=== PATIENT | female | born 1975 | race Hispanic/Latino ===

== ENCOUNTER 2025-06-12 16:46 | Emergency (ER) | payer OTHER ==
[2025-06-12 17:28] LABS: Absolute Lymphocytes (CBC) 2.2 K/uL (0.7-4.9); Hematocrit 31.1 % (36.0-45.0); Hemoglobin 9.7 g/dL (12.0-15.0); MCH 24.4 pg (27.0-35.0); MCHC 31.4 g/dL (32.0-36.0); MCV 77.8 fL (80-100); MPV 7.7 fL (7.6-11.3); Nucleated RBC Absolute Count 0.0 (0-0); Nucleated Red Blood Cells % 0.1 % (0-0); RBC Red Blood Cell Count 4.00 M/uL (3.86-4.86); White Blood Count 6.90 thou/uL (4.3-10.9)
[2025-06-12] MEDS ORDERED: NA CHLORIDE 0.9% 1,000 ML ONE (17:29)
[2025-06-12 17:46] LABS: Urine Culture Reflex Order NOT NEEDED; Urine Microscopic Reflex YN ORDER UMIC; Urine Yeast (Budding) Trace /HPF (None Seen)
[2025-06-12 17:50] LABS: ALT/SGPT 22 U/L (13-56); AST/SGOT 16 U/L (15-37); Albumin 3.3 g/dL (3.4-5.0); Albumin/Globulin Ratio 0.7 (1.1-1.8); Alkaline Phosphatase 95 U/L (45-117); Anion Gap 10.6 mEq/L (5.0-15.0); BUN Blood Urea Nitrogen 13 mg/dL (7-18); Globulin 4.8 g/dL (2.3-3.5); Glucose Level 109 mg/dL (74-106); HCG, Quantitative < 1 mIU/mL (1-3); Lipase 42 U/L (13-75); Potassium 3.6 mEq/L (3.5-5.1)
[2025-06-12 18:02] LABS: Blood Morphology Comment NOTED (NOT SEEN); White Blood Cell Scan OK (OK)
[2025-06-12 18:03] LABS: Anisocytosis 1+; Macrocytosis SLIGHT; Microcytosis SLIGHT; Ovalocytes 1+; Stomatocytes 1+
--- NOTE | 2025-06-12 18:32 | RAD REPORT ---
EXAMINATION: CT ABDOMEN AND PELVIS WITH CONTRAST CLINICAL INDICATION: Abdominal pain TECHNIQUE: CT abdomen and pelvis was performed, after the administration of 100 cc Isovue-300.. Sagit ynes and coronal reconstructions were obtained. One or more of the following dose reduction techniques were used: Automated exposure control, adjustment of the mA and kV according to patient si ze, and iterative reconstruction. Unless otherwise specified, incidental findings do not require dedicated imaging follow-up. [id number]. Oral contrast was not given which limits evaluation of bowel and appendix. COMPARISON: .None FINDINGS: Liver, spleen, pancreas, left adrenal and kidneys appear unremarkable 12 mm right adrenal nodule Hounsfield unit 48 Cholecystectomy. Post surgical changes involve the stomach. Postsurgical changes involve small bowel. Mild dilatation of a loop may represent a focal ileus. 1.8 cm fatty structure abuts the cecum. Diffuse edema within the anterior subcutaneous tissues of the pelvis. No adnexal mass seen. No evidence of diverticulitis. Mild anterior subluxation L5 on S1. Spondylolysis L5 : IMPRESSION: 1.8 cm fatty structure adjacent to the cecum may represent epiploic appendicitis. It may be chronic. Edema within the anterior subcutaneous tissues of the pelvis may be the sequela of prior surgery or i ndicate inflammation. 12 mm right adrenal nodule probably an adenoma. It is recommended 1 year follow up adrenal washout CT . If stable then no further follow-up imaging r
--- NOTE | 2025-06-12 19:14 | ER ---
Nurse's Notes [facility] Name: Evelin Phelps Age: 50 yrs Sex: Female : 1975 Arrival Date: 06/12/2025 Time: 16:46 Bed 16 Private MD: Diagnosis: Abdominal pain, Generalized;Epiploic appendagitis Presentation: 06/12 17:02 Chief complaint: Patient states: reports abdominal cramping for 18 months. [place] [facility] [place] and last period was 1.5 months ago. Coronavirus screen: Vaccine status: Patient reports receiving the 2nd dose of the covid vaccine. Ebola Screen: No symptoms or risks identified at this time. Initial Sepsis Screen: Does the patient meet any 2 criteria? No. Patient's initial sepsis screen is negative. Does the patient have a suspected source of infection? No. Patient's initial sepsis screen is negative. Risk Assessment: Do you want to hurt yourself or someone else? Patient reports no desire to harm self or others. Onset of symptoms is unknown. 17:02 Method Of Arrival: Ambulatory [facility] 17:02 Acuity: YONATHAN 3 me1 Triage Assessment: 17:05 General: Appears in no apparent distress. Behavior is calm, cooperative, appropriate me1 for age. Pain: Complains of pain in abdomen Pain does not radiate. Pain currently is 4 out of 10 on a pain scale. Quality of pain is described as crampy, Pain began gradually, Is continuous. EENT: No signs and/or symptoms were reported regarding the EENT system. Neuro: Level of Consciousness is awake, alert, obeys commands, Oriented to person, place, time, situation, Appropriate for age. Cardiovascular: Patient's skin is warm and dry. Respiratory: Airway is patent Respiratory effort is even, unlabored, Respiratory pattern is regular, symmetrical. GI: Reports cramping. : No signs and/or symptoms were reported regarding the genitourinary system. Derm: Skin is intact, is healthy with good turgor, Skin is normal. Musculoskeletal: Circulation, motion, and sensation intact. Range of motion: intact in all extremities. 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 Unsure of exact date [facility] Historical: - Allergies: 17:05 steroids; me1 - PMHx: 17:05 Diabetes mellitus; Hypertensive disorder; Obesity; me1 - PSHx: 17:05 gastric bypass; hernia repair; surgery to remove skin after weightloss; me1 - Immunization history:: Adult Immunizations up to date. - Infectious Disease History:: Denies. - Social history:: Smoking status: Patient denies any tobacco usage or history of. Screenin:09 [facility] ED Fall Risk Assessment (Adult) History of falling in the last 3 months, me1 including since admission No falls in past 3 months (0 pts) Confusion or Disorientation No (0 pts) Intoxicated or Sedated No (0 pts) Impaired Gait No (0 pts) Mobility Assist Device Used No (0 pt) Altered Elimination No (0 pt) Score/Fall Risk Level 0 - 2 = Low Risk Maintained a safe environment, Provided non-skid footwear, Hourly rounding (assess needs \T\ fall precautionary measures) done. Abuse screen: Denies threats or abuse. Nutritional screening: No deficits noted. Tuberculosis screening: No symptoms or risk factors identified. Assessment: 17:09 General: See triage assessment. me1 19:17 GI: Bowel sounds present X 4 quads. Abd is soft and non tender X 4 quads. me1 Vital Signs: 17:02 BP 128 / 86; Pulse 82; Resp 17; Temp 98.2; Pulse Ox 98% ; Weight 81.19 kg; Height 5 ft. me1 3 in. ; Pain 4/10; 18:00 BP 111 / 56; Pulse 71; Resp 16; Pulse Ox 98% ; me1 17:02 Body Mass Index 31.71 (81.19 kg, 160.02 cm) me1 17:02 Pain Scale: Adult pa1 ED Course: 16:50 Patient arrived in ED. im 16:50 Kerrie Juan FNP-C is PHCP. kb 16:50 Jose A Cazares DO is Attending Physician. kb 16:58 Fely Reed, NADIA is Primary Nurse. me1 17:05 Triage completed. me1 17:05 Arm band placed on Patient placed in an exam room. me1 17:09 Patient has correct armband on for positive identification. Bed in low position. Call pa1 light in reach. Side rails up X2. Provided Education on: POC. Verbalized understanding.. Client placed on continuous cardiac and pulse oximetry monitoring. NIBP monitoring applied. Pulse ox on. NIBP on. 17:09 No provider procedures requiring assistance completed. me1 17:18 CBC with Diff Sent. me1 17:18 CMP Sent. me1 17:18 Lipase Sent. me1 17:18 HCG-Quantitative Sent. me1 17:18 Initial lab(s) drawn, by me, sent to lab. Inserted saline lock: 22 gauge in left pa1 antecubital area, using aseptic technique. 17:40 UA Rfx Steve Cult if indicated Sent. me1 17:40 Test, Urine Sent. me1 17:40 Urine collected: clean catch specimen, cloudy. me1 18:12 CT Abd/Pelvis - IV Contrast Only In Process Unspecified. EDMS 19:18 IV discontinued, intact, bleeding controlled, No redness/swelling at site. Pressure me1 dressing applied. Administered Medications: 17:39 Drug: NS 0.9% IV 1000 ml IV at 1 bolus Per protocol; to be given as a bolus over 60 me1 minutes Route: IV; Rate: 1 bolus; Site: left antecubital; 19:19 Follow up: IV Status: Completed infusion me1 Medication: 17:09 VIS not applicable for this client. me1 Outcome: 19:14 Discharge ordered by MD. mcintosh 19:18 Discharged to home ambulatory, with family, me1 19:18 Condition: stable 19:18 Discharge instructions given to patient, Instructed on discharge instructions, follow up and referral plans. Demonstrated understanding of instructions, follow-up care, 19:18 Patient left the ED. me1 Signatures: Dispatcher [employer] Kerrie Guerin, RAYA MUSIC PROMOTER-Autumn Aden Michelle, RN RN me1
--- NOTE | 2025-06-12 19:14 | EDPHYS ---
Physician Documentation [facility] Name: Evelin Phelps Age: 50 yrs Sex: Female : 1975 Arrival Date: 06/12/2025 Time: 16:46 Bed 16 Private MD: ED Physician Jose A Cazares HPI: 06/12 17:32 This 50 yrs old Female presents to ER via Ambulatory with complaints of , kb Abdominal Cramping. 17:32 Patient is a 50-year-old female who presents for abdominal cramping that has been kb ongoing for 18 months but is gotten worse. Patient states she has had multiple surgeries to the abdomen over the last 2 years. States she had a gastric bypass 2 years ago and has had 5 surgeries since then to remove excess skin. States that she was recently seen at a clinic and told that her test was positive and she may have an ectopic because of her previous surgical history. Denies nausea, vomiting, diarrhea.. 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 Unsure of exact date me1 Historical: - Allergies: 17:05 steroids; me1 - PMHx: 17:05 Diabetes mellitus; Hypertensive disorder; Obesity; me1 - PSHx: 17:05 gastric bypass; hernia repair; surgery to remove skin after weightloss; me1 - Immunization history:: Adult Immunizations up to date. - Infectious Disease History:: Denies. - Social history:: Smoking status: Patient denies any tobacco usage or history of. ROS: 17:31 Constitutional: As per HPI kb Exam: 17:31 Constitutional: This is a well developed, well nourished patient who is awake, alert, kb and in no acute distress. Head/Face: Normocephalic, atraumatic. ENT: Moist Mucous membranes Cardiovascular: Regular rate Respiratory: Respirations even and unlabored. No increased work of breathing. Talking in full sentences Skin: Warm, dry with normal turgor. Normal color. MS/ Extremity: Pulses equal, no cyanosis. Neurovascular intact. Full, normal range of motion. Neuro: Awake and alert, GCS 15, oriented to person, place, time, and situation. 17:31 Abdomen/GI: Inspection: scar(s), are noted in the abdomen diffusely, Bowel sounds: normal, Palpation: soft, in all quadrants, moderate abdominal tenderness, in all quadrants, Vital Signs: 17:02 BP 128 / 86; Pulse 82; Resp 17; Temp 98.2; Pulse Ox 98% ; Weight 81.19 kg; Height 5 ft. me1 3 in. ; Pain 4/10; 18:00 BP 111 / 56; Pulse 71; Resp 16; Pulse Ox 98% ; me1 17:02 Body Mass Index 31.71 (81.19 kg, 160.02 cm) me1 17:02 Pain Scale: Adult me1 MDM: 16:52 Medical Screening Exam initiated kb 17:32 Data reviewed: vital signs, nurses notes. kb 19:12 Differential diagnosis: , bowel obstruction, constipation, nonspecific abd kb pain. I considered the following discharge prescriptions or medication management in the emergency department I discussed and recommended Over The Counter medications, Antibiotics: At this time antibiotics are not recommended. Counseling: I had a detailed discussion with the patient and/or guardian regarding the historical points, exam findings, and any diagnostic results supporting the discharge/admit diagnosis, lab results, radiology results, the need for outpatient follow up, a family practitioner, to return to the emergency department if symptoms worsen or persist or if there are any questions or concerns that arise at home. 19:14 Special discussion: I discussed with the patient the need to follow-up with the PCP/specialist for the noted incidental finding on X-ray/CT scanning. 06/12 16:58 Order name: CBC with Diff; Complete Time: 18:06 kb 06/12 16:58 Order name: CMP; Complete Time: 17:51 kb 06/12 16:58 Order name: Lipase; Complete Time: 17:51 kb 06/12 16:58 Order name: Test, Urine; Complete Time: 17:47 kb 06/12 16:58 Order name: UA Rfx Steve Cult if indicated; Complete Time: 17:47 kb 06/12 16:58 Order name: HCG-Quantitative; Complete Time: 17:51 kb 06/12 18:01 Order name: CBC Smear Scan; Complete Time: 18:06 EDMS 06/12 17:47 Order name: CT Abd/Pelvis - IV Contrast Only; Complete Time: 18:57 kb 06/12 16:58 Order name: IV Saline Lock; Complete Time: 17:18 kb 06/12 16:58 Order name: Labs collected and sent; Complete Time: 17:18 kb Administered Medications: 17:39 Drug: NS 0.9% IV 1000 ml IV at 1 bolus Per protocol; to be given as a bolus over 60 me1 minutes Route: IV; Rate: 1 bolus; Site: left antecubital; 19:19 Follow up: IV Status: Completed infusion me1 Disposition: 20:07 I was immediately available on-site in the Emergency Department for consultation in the ms3 care of the patient. Disposition Summary: 06/12/25 19:14 Discharge Ordered Notes: Location: Home kb Condition: Stable kb Diagnosis - Abdominal pain, Generalized kb - Epiploic appendagitis kb Followup: kb - With: Emergency Department - When: As needed - Reason: Worsening of condition Followup: kb - With: Private Physician - When: 2 - 3 days - Reason: Recheck today's complaints, Continuance of care, Re-evaluation by your physician Discharge Instructions: - Discharge Summary Sheet kb - Abdominal Pain, Adult, [id number] kb - Epiploic Appendagitis kb Forms: - Medication Reconciliation Form kb - Antibiotic Education kb - Prescription Opioid Use kb - Patient Portal Instructions kb - Leadership Thank You Letter kb Signatures: Dispatcher [employer] Kerrie Guerin, WIND ENERGY ENGINEER-C WIND ENERGY ENGINEER-Jose A Menjivar DO DO ms3 Fely Reed, RN RN me1
[2025-06-13 01:01] VITALS: TEMP 98.2; O2SAT 98
[2025-06-13 01:06] VITALS: BP 111/56
== END 2025-06-12 19:18 | disposition home or self-care (01) ==
LOC: ER 16:46
DX: K63.89 Other specified diseases of intestine (principal)
CPT/HCPCS: 96361; 85025; 81001; 36415; 81025; 84702; 83690; 80053; 74177; 96360; 99284; Q9967; J7030